=== PATIENT | male | born 1975 | race Two or more races ===

== ENCOUNTER 2017-10-29 10:19 | Emergency (ER) | payer MEDICAID ==
[~2017-10-29] VITALS: Ht 175.3 cm; Wt 90.7 kg
[2017-10-29 10:24] VITALS: BP 195/97
== END 2017-10-29 10:35 | disposition left against medical advice (07) ==
LOC: ER 10:19
DX: F41.9 Anxiety disorder, unspecified (principal); Z53.21 Procedure and treatment not carried out due to patient leaving prior to being seen by health care provider